=== PATIENT | male | born 1985 | race Caucasian/White ===

== ENCOUNTER 2019-05-05 10:02 | Emergency (ER) | payer OTHER ==
[~2019-05-05] VITALS: Ht 172.7 cm; Wt 108.5 kg
[2019-05-05 10:06] VITALS: BP 139/80
--- NOTE | 2019-05-05 10:11 | NUR ---
PATIENT AMBULATED TO BED 8 AT THIS TIME.
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
--- NOTE | 2019-05-05 10:22 | NUR ---
Patient being evaluated by physician at bedside.
--- NOTE | 2019-05-05 10:38 | NUR ---
XRAY AT BEDSIDE.
[2019-05-05 11:59] VITALS: BP 127/75
--- NOTE | 2019-05-05 12:00 | NUR ---
Patient discharged with v/s stable. Written and verbal after care instructions given and explained. Patient alert, oriented and verbalized understanding of instructions. Ambulatory with steady gait. All questions addressed prior to discharge. ID band removed. Patient advised to follow up with PMD. Opportunity to ask questions provided and answered.
== END 2019-05-05 12:00 | disposition home or self-care (01) ==
LOC: MED 10:02
DX: R00.2 Palpitations (principal); F41.9 Anxiety disorder, unspecified; F31.9 Bipolar disorder, unspecified; F98.8 Other specified behavioral and emotional disorders with onset usually occurring in childhood and adolescence; Z87.891 Personal history of nicotine dependence
CPT/HCPCS: 71045; 93005; 99283; Q0092